=== PATIENT | male | born 1985 | race African-American/Black ===

== ENCOUNTER → 2022-10-18 08:00 | Outpatient (CLI) | payer OTHER, BC, SELFPAY ==
[2022-10-18 08:44] LABS: Influenza A - CEPHEID Flu A NEGATIVE (NEGATIVE); Influenza B - CEPHEID Flu B NEGATIVE (NEGATIVE); Respiratory Syncytial Virus Negative (Negative)
[2022-10-18 08:54] LABS: COVID-19 CEPHEID 4-PLEX PCR POSITIVE (Negative)
== END ==
PROVIDERS: Visit Provider Physician Assistant
DX: R11.10 Vomiting, unspecified (principal); R52 Pain, unspecified; R68.83 Chills (without fever)
CPT/HCPCS: 0241U

== ENCOUNTER 2022-10-18 08:38 | Emergency (ER) | payer OTHER, SELFPAY ==
[2022-10-18 08:49] VITALS: BP 131/81; PULSE 99; RESP 18; TEMP 36.8; O2SAT 96; BMI 33.9
--- NOTE | 2022-10-18 09:07 | PC.NURSE ---
Pt reports chronic bloody stool for several months but recently the blood clots have become very large with every bowel movement. States he feels weak, lethargic, new cough and hot flashes/ chills.
[2022-10-18 09:13] LABS: Add Manual Diff / Slide Review NO; Basophils Absolute Auto 0 /uL (0-100); Basophils Percent Auto 0.7 % (0-2); Eosinophils Absolute Auto 0 /uL (0-450); Eosinophils Percent Auto 0.5 % (2-4); Hematocrit 42.8 % (41-53); Hemoglobin 14.5 g/dL (13.5-17.5); Lymphocytes Absolute Auto 1000 /uL (1100-4500); Lymphocytes Percent Auto 22.6 % (25-40); Mean Corpuscular HGB Conc 33.8 % (30-36); Mean Corpuscular Hemoglobin 29.9 PG (26-34); Mean Corpuscular Volume 88.6 fL (80-100); Monocytes Absolute Auto 900 /uL (0-900); Monocytes Percent Auto 20.1 % (3-14); Neutrophils Absolute Auto 2500 /uL (1500-7000); Neutrophils Percent Auto 56.1 % (50-75); Platelet Count 237 X10^3/uL (150-400); Red Blood Cell Count 4.83 X10^6/uL (4.5-5.9); Red Cell Distribution Width 14.5 % (11.6-14.8); White Blood Cell Count 4.4 X10^3/uL (4.5-11.0)
[2022-10-18 09:19] LABS: BUN Creatinine Ratio 7.8 (6-22); Blood Urea Nitrogen 12 mg/dL (9-20); Calcium 9.1 mg/dL (8.4-10.2); Carbon Dioxide 27 mmol/L (22-32); Chloride 101 mmol/L (98-107); Estimated Glomerular Filt Rate 59 mL/min (>60); Glucose 88 mg/dL (70-100); HEMOLYSIS < 15 (0-50); Potassium 3.8 mmol/L (3.4-5.1); Sodium 136 mmol/L (137-145)
--- NOTE | 2022-10-18 09:21 | ED.GENADULT ---
HPI - General Adult General Chief complaint: GI Bleed Stated complaint: [facility] referred; blood in stool, clotting Time Seen by Provider: 10/18/22 08:45 Source: patient Mode of arrival: Ambulatory History of Present Illness HPI narrative: Patient is a 28-year-old male who was sent over from the walk-in clinic for evaluation of bright red blood in his stool. He actually states that the symptoms have been going on for several months although it has been more persistent recently (over the past couple weeks). He is no abdominal pain. Feels that he is somewhat constipated but no diarrhea. No vomiting. He did have a colonoscopy several months ago. He states that there were no biopsies taken but he was informed that he should follow-up with a GI doctor due to ?abnormalities? he does not know specifically what they were. He is yet to follow-up with the GI doctors. No fevers. No hemorrhoids. Related Data Home Medications Medication Instructions Recorded Confirmed No Known Home Medications 10/18/22 10/18/22 Allergies Allergy/AdvReac Type Severity Reaction Status Date / Time No Known Drug Allergies Allergy Unverified 10/18/22 07:56 Review of Systems Constitutional Constitutional: Reports system reviewed and no additional complaints, except as documented Cardiovascular Cardiovascular: Reports system reviewed and no additional complaints, except as documented Respiratory Respiratory: Reports system reviewed and no additional complaints, except as documented Gastrointestinal Gastrointestinal: Reports system reviewed and no additional complaints, except as documented Genitourinary Genitourinary: Reports system reviewed and no additional complaints, except as documented Integumentary/Breasts Skin/Breast: Reports system reviewed and no additional complaints, except as documented Hematologic/Lymphatic On Anticoagulants: No Patient History Social History Smoking Status: Current every day smoker Smoking Status: Current every day smoker tobacco type: cigarettes alcohol intake frequency: other Alcohol type: other Substance Use Type: does not use Exam Initial Vital Signs Initial Vital Signs: Vital Signs Temperature 98.3 F 10/18/22 08:49 Pulse Rate 99 H 10/18/22 08:49 Respiratory Rate 18 10/18/22 08:49 Blood Pressure 131/81 10/18/22 08:49 Pulse Oximetry 96 10/18/22 08:49 Oxygen Delivery Method Room Air 10/18/22 08:49 Const General: cooperative, comfortable and No ill appearing HENMT Head: normal to inspection Resp Effort & Inspection: normal respiratory effort Cardio Rate: regular rate GI Inspection: normal to inspection Palpation: soft, No firm and No tender Skin General: no rashes or lesions noted Extrem General: normal to inspection and capillary refill normal Course Orders Ordered: ED Orders 10/18/22 08:35 Basic Metabolic Panel Stat Complete Blood Count AUTO DIFF Stat Vital Signs Vital signs: Vital Signs - 8 hr 10/18/22 08:49 Temperature 98.3 F Pulse Rate 99 H Respiratory Rate 18 Blood Pressure 131/81 Pulse Oximetry 96 Oxygen Delivery Method Room Air Medical Decision Making Lab Data Lab results reviewed: Yes I reviewed the patient's lab results. 10/18/22 08:35 10/18/22 08:35 Labs: Lab Results 10/18/22 10/18/22 Range/Units 08:35 08:35 WBC 4.4 L (4.5-11.0) X10^3/uL RBC 4.83 (4.5-5.9) X10^6/uL Hgb 14.5 (13.5-17.5) g/dL Hct 42.8 (41-53) % MCV 88.6 (80-100) fL MCH 29.9 (26-34) PG MCHC 33.8 (30-36) % RDW 14.5 (11.6-14.8) % Plt Count 237 (150-400) X10^3/uL Neut % (Auto) 56.1 (50-75) % Lymph % (Auto) 22.6 L (25-40) % Treasure % (Auto) 20.1 H (3-14) % Eos % (Auto) 0.5 L (2-4) % Baso % (Auto) 0.7 (0-2) % Neut # (Auto) 2500 (1073-4963) /uL Lymph # (Auto) 1000 L (4386-0693) /uL Treasure # (Auto) 900 (0-900) /uL Eos # (Auto) 0 (0-450) /uL Baso # (Auto) 0 (0-100) /uL Sodium 136 L (137-145) mmol/L Potassium 3.8 (3.4-5.1) mmol/L Chloride 101 (98-107) mmol/L Carbon Dioxide 27 (22-32) mmol/L BUN 12 (9-20) mg/dL Creatinine 1.53 H (0.66-1.25) mg/dL Estimated GFR 59 L (>60) mL/min BUN/Creatinine Ratio 7.8 (6-22) Glucose 88 (70-100) mg/dL Calcium 9.1 (8.4-10.2) mg/dL MDM Narrative Medical decision making narrative: Patient is nontoxic appearing his presenting symptoms been going on for weeks/months. He has had a colonoscopy. His vital signs are unremarkable. Blood counts are unremarkable. Exam is unremarkable. Patient does not require any imaging studies today. Does not require admission to the hospital. Had a long discussion with him regarding the symptoms. I did advise that he follow-up with the GI doctor per the recommendations of the provider who did the colonoscopy. Advised that he contact the GI doctors for a follow-up while he is in the local area so that he could set up an appointment for when he returns home. He was given specific return precautions. He expressed understanding and agreement. Discharge Plan Departure Patient Disposition: Home Clinical Impression: Bright red blood per rectum Activity Restrictions/Additional Instructions: It is important that you contact the GI doctors back in [place] where your from for a follow-up. Continue to take any medications as directed. Return to the emergency department for new symptoms. Prescriptions: No Action No Known Home Medications Referrals: Doctor Shin MD [Primary Care Provider] - Stand Alone Forms: Patient Portal/API
[2022-10-18 10:18] VITALS: BP 138/91; PULSE 91; RESP 18; O2SAT 97
== END 2022-10-18 10:19 | disposition home or self-care (01) ==
PROVIDERS: Emergency Provider Emergency Medicine
DX: K62.5 Hemorrhage of anus and rectum (principal); R11.10 Vomiting, unspecified; R52 Pain, unspecified; R68.83 Chills (without fever)
CPT/HCPCS: 36415; 80048; 85025; 99283